=== PATIENT | female | born 1955 | race Caucasian/White ===

== ENCOUNTER 2017-06-16 15:22 | Inpatient (IN) | payer OTHER, MEDICAID ==
[~2017-06-16] VITALS: Ht 165.1 cm; Wt 153.6 kg
[~2017-06-16 15:22] MED LIST: ASPI81CH43 PO; ENA2.5T PO; FLUT250M2 INH; FURO40TA PO; HYDR50TA15 PO; IBUP800T24 PO; INSLANTI SC; METH-562 PO; METO50TA7 PO; MULTTAB99 PO; PRED-188 PO; WARF5TAB71 PO; ZOLP10TA PO
[2017-06-16 15:56] LABS: Basophils # (auto) 0 uL; Basophils % (auto) 0.3 % (0.0-2.0); Eosinophils # (auto) 0 uL; Eosinophils % (auto) 0.3 % (0.0-7.0); Hematocrit 42.8 % (36.0-46.0); Hemoglobin 13.8 g/dL (12.2-16.2); Lymphocytes # (auto) 1.1 uL; Lymphocytes % (auto) 9.1 % (10.0-50.0); Mean Corpuscular Hemoglobin 30.1 pg (28.0-32.0); Mean Corpuscular Hgb Conc. 32.1 g/dL (32.0-36.0); Mean Corpuscular Volume 93.6 fL (80.0-100.0); Monocytes # (auto) 0.4 uL; Monocytes % (auto) 3.5 % (0.0-12.0); Neutrophils # (auto) 10.6 uL; Neutrophils % (auto) 86.8 % (37.0-80.0); Nucleated Red Blood Cells % 0.1 %; Platelet Count (auto) 251 10^3/uL (140-450); Red Blood Cells 4.58 10^6/uL (4.0-5.20); Red Cell Distribution Width 16.2 % (11.8-14.3); White Blood Cell 12.2 10^3/uL (4.4-10.8)
[2017-06-16 16:15] LABS: Alanine Aminotransferase 18 U/L (13-56); Albumin 3.7 g/dL (3.4-5.0); Alkaline Phosphatase 88 U/L (45-117); Amylase 21 U/L (25-115); Anion Gap 8 (5-15); Aspartate Aminotransferase 16 U/L (15-37); BUN/Creatinine Ratio 14.9; Bilirubin, Total 0.6 mg/dL (0.2-1.0); Blood Urea Nitrogen 13 mg/dL (7-18); Calcium 8.8 mg/dL (8.5-10.1); Carbon Dioxide 29 mmol/L (21-32); Chloride 101 mmol/L (98-107); GFR African American 85 mL/min; GFR Non-African American 70 mL/min; Glucose 197 mg/dL (74-106); Lipase 76 U/L (73-393); Magnesium 2.4 mg/dL (1.6-2.6); Sodium 138 mmol/L (136-145); Total Protein 7.8 g/dL (6.4-8.2)
[2017-06-16] MEDS ORDERED: MEPERIDINE HCL (25 MG/ML) 1ML VIAL IV ONE (19:30)
[2017-06-16] MEDS ORDERED: ONDANSETRON HCL 4 MG/2 ML VIAL IV ONE (19:30)
[2017-06-16 20:00] LABS: Urine Bacteria NONE SEEN /hpf (None Seen); Urine Blood 3+ /uL (Negative); Urine Mucus FEW (None Seen); Urine Specific Gravity 1.024 (1.001-1.035); Urine WBC 11 /hpf (0 - 5)
[2017-06-16] MEDS ORDERED: BENZOCAINE (DENTAL) 20 % SPRAY 60ML MT ONE (20:46)
[2017-06-16] MEDS ORDERED: ACETAMINOPHEN 325 MG TAB PO PRN (21:30)
[2017-06-16] MEDS ORDERED: DEXTROSE (50%) 50ML SYRG IV PRN (21:30)
[2017-06-16] MEDS ORDERED: MORPHINE SULF INJ 2 MG/ML SYRINGE 1ML IV PRN (21:30)
[2017-06-16] MEDS ORDERED: TEMAZEPAM 15 MG CAP PO PRN (21:30)
[2017-06-16] MEDS ORDERED: NITROGLYCERIN 0.4 MG SL TAB SL PRN (21:30)
[2017-06-16] MEDS ORDERED: PANTOPRAZOLE 40 MG/10 ML VIAL IV ONE (21:30)
[2017-06-16] MEDS ORDERED: ONDANSETRON HCL 4 MG/2 ML VIAL IV PRN (21:30)
[2017-06-16] MEDS: SODIUM CHLORIDE 0.9% 1,000 ML IV SCH (22:09)
[2017-06-16 22:27] VITALS: BP 150/83
[2017-06-16] MEDS: hydrALAZINE HCL 25 MG TAB PO SCH (22:31)
[2017-06-16 22:33] LABS: INR 0.97 (0.9-1.15); Partial Thromboplastin Time 28.7 sec (22.64-33.71); Prothrombin Time 10.6 sec (9.37-12.3)
[2017-06-16 22:44] VITALS: BP 150/83
[2017-06-17] VITALS (7 sets, daily range): BP systolic 100–132; BP diastolic 42–61
[2017-06-17] MEDS ORDERED: FLUT250M2 INH (00:03)
[2017-06-17] MEDS ORDERED: POTA10TA51 PO (00:03)
[2017-06-17] MEDS ORDERED: TIOTCAP IN (00:03)
[2017-06-17] MEDS ORDERED: OMEP20CA74 PO (00:03)
[2017-06-17] MEDS ORDERED: INSLISPI SC (00:07)
[2017-06-17] MEDS ORDERED: ENAL20TA70 PO (00:07)
[2017-06-17] MEDS ORDERED: ALB5IS NEB (00:07)
[2017-06-17] MEDS ORDERED: LACT10SO3 PO (00:07)
[2017-06-17] MEDS ORDERED: MONT10TA34 PO (00:07)
[2017-06-17] MEDS: ACCU-CHEK COMFORT CURVE STRIP VI SCH ×4 (00:21→17:40)
[2017-06-17] MEDS: MEPERIDINE HCL (25 MG/ML) 1ML VIAL IV PRN ×4 (00:27→21:55)
[2017-06-17] MEDS: InsuLIN REG 1unit/0.01ml Soln (100units/ml) SC SCH ×4 (00:27→17:50)
[2017-06-17] MEDS: hydrALAZINE HCL 25 MG TAB PO SCH ×3 (05:45→21:56)
[2017-06-17] MEDS: HYDROcodone-ACET 5/325MG TAB PO PRN (06:01)
[2017-06-17 07:17] LABS: Basophils # (auto) 0 uL; Basophils % (auto) 0.3 % (0.0-2.0); Eosinophils # (auto) 0.1 uL; Eosinophils % (auto) 0.6 % (0.0-7.0); Hematocrit 37.3 % (36.0-46.0); Hemoglobin 12.2 g/dL (12.2-16.2); Lymphocytes # (auto) 1.7 uL; Lymphocytes % (auto) 19.6 % (10.0-50.0); Mean Corpuscular Hemoglobin 30.5 pg (28.0-32.0); Mean Corpuscular Hgb Conc. 32.7 g/dL (32.0-36.0); Mean Corpuscular Volume 93.2 fL (80.0-100.0); Monocytes # (auto) 0.5 uL; Monocytes % (auto) 5.6 % (0.0-12.0); Neutrophils # (auto) 6.4 uL; Neutrophils % (auto) 73.9 % (37.0-80.0); Nucleated Red Blood Cells % 0.1 %; Platelet Count (auto) 228 10^3/uL (140-450); Red Cell Distribution Width 16.1 % (11.8-14.3); White Blood Cell 8.6 10^3/uL (4.4-10.8)
[2017-06-17 07:34] LABS: Albumin 3.4 g/dL (3.4-5.0); BUN/Creatinine Ratio 19.5; Bilirubin, Total 0.6 mg/dL (0.2-1.0); Potassium 4.2 mmol/L (3.5-5.1); Total Protein 6.9 g/dL (6.4-8.2)
[2017-06-17] MEDS ORDERED: GASTROGRAFIN 120 ML SOL ONE (09:18)
[2017-06-17] MEDS: ENALAPRIL MALEATE 2.5 MG TAB PO SCH (10:00)
[2017-06-17] MEDS ORDERED: FUROSEMIDE 40 MG TAB PO SCH (10:00)
[2017-06-17] MEDS: ASPirin 81 mg TAB PO SCH (10:00)
[2017-06-17] MEDS: METOPROLOL SUCCINATE XL 50 MG TAB PO SCH (10:00)
[2017-06-17] MEDS: PANTOPRAZOLE 40 MG/10 ML VIAL IV SCH (10:06)
[2017-06-17] MEDS: predniSONE 5 MG TAB PO SCH (10:06)
[2017-06-17] MEDS: SODIUM CHLORIDE 0.9% 1,000 ML IV SCH ×3 (10:14→17:49)
[2017-06-18] VITALS (7 sets, daily range): BP systolic 94–138; BP diastolic 54–84
[2017-06-18] MEDS: MEPERIDINE HCL (25 MG/ML) 1ML VIAL IV PRN ×3 (02:42→11:39)
[2017-06-18] MEDS: ACCU-CHEK COMFORT CURVE STRIP VI SCH ×4 (04:12→17:30)
[2017-06-18] MEDS: InsuLIN REG 1unit/0.01ml Soln (100units/ml) SC SCH ×4 (04:13→18:42)
[2017-06-18 05:54] LABS: Basophils # (auto) 0 uL; Basophils % (auto) 0.3 % (0.0-2.0); Eosinophils # (auto) 0 uL; Eosinophils % (auto) 0.3 % (0.0-7.0); Hematocrit 37.8 % (36.0-46.0); Hemoglobin 12.7 g/dL (12.2-16.2); Lymphocytes # (auto) 1.6 uL; Lymphocytes % (auto) 16.4 % (10.0-50.0); Mean Corpuscular Hemoglobin 31.2 pg (28.0-32.0); Mean Corpuscular Hgb Conc. 33.7 g/dL (32.0-36.0); Mean Corpuscular Volume 92.8 fL (80.0-100.0); Monocytes # (auto) 0.5 uL; Monocytes % (auto) 4.6 % (0.0-12.0); Neutrophils # (auto) 7.9 uL; Neutrophils % (auto) 78.4 % (37.0-80.0); Nucleated Red Blood Cells % 0.1 %; Platelet Count (auto) 244 10^3/uL (140-450); Red Blood Cells 4.07 10^6/uL (4.0-5.20); Red Cell Distribution Width 15.9 % (11.8-14.3)
[2017-06-18 06:16] LABS: Potassium 3.5 mmol/L (3.5-5.1)
[2017-06-18 06:17] LABS: BUN/Creatinine Ratio 13.6; Calcium 7.8 mg/dL (8.5-10.1); Magnesium 2.2 mg/dL (1.6-2.6)
[2017-06-18] MEDS: hydrALAZINE HCL 25 MG TAB PO SCH ×3 (06:18→22:28)
[2017-06-18] MEDS: METOPROLOL SUCCINATE XL 50 MG TAB PO SCH (10:00)
[2017-06-18] MEDS: ENALAPRIL MALEATE 2.5 MG TAB PO SCH (10:00)
[2017-06-18] MEDS: PANTOPRAZOLE 40 MG/10 ML VIAL IV SCH (10:55)
[2017-06-18] MEDS: ASPirin 81 mg TAB PO SCH (10:55)
[2017-06-18] MEDS: predniSONE 5 MG TAB PO SCH (10:56)
[2017-06-18] MEDS: HYDROcodone-ACET 5/325MG TAB PO PRN (16:18)
[2017-06-18] MEDS: SODIUM CHLORIDE 0.9% 1,000 ML IV SCH (17:31)
[2017-06-18] MEDS: ALBUTEROL SULF 2.5 MG/0.5ML(0.5%) NEB SOLN NEB PRN (18:42)
[2017-06-18] MEDS: IPRATROPIUM BROM 0.5 MG/2.5ML INH SOL NEB PRN (18:42)
[2017-06-19] MEDS: HYDROcodone-ACET 5/325MG TAB PO PRN ×2 (00:24→09:55)
[2017-06-19] MEDS: InsuLIN REG 1unit/0.01ml Soln (100units/ml) SC SCH ×5 (00:35→23:54)
[2017-06-19] MEDS: ALBUTEROL SULF 2.5 MG/0.5ML(0.5%) NEB SOLN NEB PRN ×2 (00:39→19:24)
[2017-06-19] MEDS: IPRATROPIUM BROM 0.5 MG/2.5ML INH SOL NEB PRN ×2 (00:40→19:24)
[2017-06-19 05:00] VITALS: BP 128/58
[2017-06-19] MEDS: hydrALAZINE HCL 25 MG TAB PO SCH ×3 (05:57→21:33)
[2017-06-19] MEDS: ACCU-CHEK COMFORT CURVE STRIP VI SCH ×5 (06:00→23:54)
[2017-06-19 09:00] VITALS: BP 121/61
[2017-06-19] MEDS: PANTOPRAZOLE 40 MG/10 ML VIAL IV SCH (09:52)
[2017-06-19] MEDS: METOPROLOL SUCCINATE XL 50 MG TAB PO SCH (09:54)
[2017-06-19] MEDS: predniSONE 5 MG TAB PO SCH (09:54)
[2017-06-19] MEDS: ENALAPRIL MALEATE 2.5 MG TAB PO SCH (09:55)
[2017-06-19] MEDS: ASPirin 81 mg TAB PO SCH (09:55)
[2017-06-19] MEDS: SODIUM CHLORIDE 0.9% 1,000 ML IV SCH ×2 (09:56→23:55)
[2017-06-19] MEDS: diphenhdrAMINE HCL 25 MG CAP PO PRN ×2 (11:51→23:53)
[2017-06-19 13:00] VITALS: BP 129/60
[2017-06-19 16:40] VITALS: BP 149/69
[2017-06-19 19:01] LABS: Partial Thromboplastin Time 29.7 sec (22.64-33.71); Prothrombin Time 10.9 sec (9.37-12.3)
[2017-06-19] MEDS ORDERED: WARFARIN SODIUM 10 MG TAB PO ONE (20:45)
[2017-06-19 22:05] VITALS: BP 158/84
[2017-06-20] VITALS (7 sets, daily range): BP systolic 122–156; BP diastolic 56–89
[2017-06-20] MEDS: hydrALAZINE HCL 25 MG TAB PO SCH ×2 (05:52→14:00)
[2017-06-20] MEDS: InsuLIN REG 1unit/0.01ml Soln (100units/ml) SC SCH ×2 (05:53→11:50)
[2017-06-20] MEDS: ACCU-CHEK COMFORT CURVE STRIP VI SCH ×2 (05:53→11:50)
[2017-06-20 06:40] LABS: Basophils # (auto) 0 uL; Basophils % (auto) 0.3 % (0.0-2.0); Eosinophils # (auto) 0.1 uL; Eosinophils % (auto) 1.2 % (0.0-7.0); Hematocrit 31.9 % (36.0-46.0); Hemoglobin 10.9 g/dL (12.2-16.2); Lymphocytes # (auto) 1.8 uL; Lymphocytes % (auto) 30.9 % (10.0-50.0); Mean Corpuscular Hemoglobin 31.4 pg (28.0-32.0); Mean Corpuscular Hgb Conc. 34.2 g/dL (32.0-36.0); Monocytes # (auto) 0.4 uL; Neutrophils # (auto) 3.6 uL; Neutrophils % (auto) 60.6 % (37.0-80.0); Platelet Count (auto) 178 10^3/uL (140-450); Red Blood Cells 3.47 10^6/uL (4.0-5.20); Red Cell Distribution Width 15.7 % (11.8-14.3); White Blood Cell 5.9 10^3/uL (4.4-10.8)
[2017-06-20 07:10] LABS: INR 1.01 (0.9-1.15); Partial Thromboplastin Time 29.1 sec (22.64-33.71)
[2017-06-20 07:11] LABS: Calcium 8.3 mg/dL (8.5-10.1); Potassium 3.5 mmol/L (3.5-5.1)
[2017-06-20] MEDS: PANTOPRAZOLE 40 MG/10 ML VIAL IV SCH (09:11)
[2017-06-20] MEDS: diphenhdrAMINE HCL 25 MG CAP PO PRN (09:13)
[2017-06-20] MEDS: HYDROcodone-ACET 5/325MG TAB PO PRN (09:13)
[2017-06-20] MEDS: ENALAPRIL MALEATE 2.5 MG TAB PO SCH (09:13)
[2017-06-20] MEDS: ASPirin 81 mg TAB PO SCH ×2 (09:14→10:00)
[2017-06-20] MEDS: predniSONE 5 MG TAB PO SCH (09:14)
[2017-06-20] MEDS: METOPROLOL SUCCINATE XL 50 MG TAB PO SCH ×2 (10:00→12:12)
[2017-06-20] MEDS: SODIUM CHLORIDE 0.9% 1,000 ML IV SCH (13:45)
[2017-06-20] MEDS ORDERED: WARFARIN SODIUM 10 MG TAB PO ONE (17:00)
== END 2017-06-20 17:05 | disposition home or self-care (01) | DRG 388 ==
LOC: ER 15:22 → EDBD 15:22 → TELE 15:23 → TELE-WESTW 22:20 → WEST WING 06-17 23:07
PROVIDERS: ADMIT Nurse Practitioner; ATTEND Internal Medicine
DX: K56.600 Partial intestinal obstruction, unspecified as to cause (principal); R65.11 Systemic inflammatory response syndrome (SIRS) of non-infectious origin with acute organ dysfunction; J96.10 Chronic respiratory failure, unspecified whether with hypoxia or hypercapnia; E27.8 Other specified disorders of adrenal gland; E11.65 Type 2 diabetes mellitus with hyperglycemia; R16.2 Hepatomegaly with splenomegaly, not elsewhere classified; C56.9 Malignant neoplasm of unspecified ovary; Z68.43 Body mass index [BMI] 50.0-59.9, adult; E66.01 Morbid (severe) obesity due to excess calories; J44.9 Chronic obstructive pulmonary disease, unspecified; I10 Essential (primary) hypertension; I48.0 Paroxysmal atrial fibrillation; N83.9 Noninflammatory disorder of ovary, fallopian tube and broad ligament, unspecified; I25.10 Atherosclerotic heart disease of native coronary artery without angina pectoris; Z99.81 Dependence on supplemental oxygen; Z91.041 Radiographic dye allergy status; Z85.43 Personal history of malignant neoplasm of ovary; Z95.1 Presence of aortocoronary bypass graft; Z79.82 Long term (current) use of aspirin; Z85.42 Personal history of malignant neoplasm of other parts of uterus; Z87.891 Personal history of nicotine dependence; Z88.0 Allergy status to penicillin; Z79.899 Other long term (current) drug therapy; Z90.89 Acquired absence of other organs; Z90.49 Acquired absence of other specified parts of digestive tract
CPT/HCPCS: 36415; 71045; 74176; 76856; 80048; 80053; 80061; 81001; 82150; 82962; 83036; 83690; 83735; 84484; 85025; 85610; 85730; 93005; 94640; 94761; 96374; 96375; C9113; J1815; J2405